=== PATIENT | female | born 1930 | race Two or more races ===

== ENCOUNTER 2017-09-08 10:15 | Emergency (ER) | payer OTHER ==
[2017-09-08 10:23] VITALS: BP 130/90; PULSE 74; TEMP 97.8; BMI 21.9
--- NOTE | 2017-09-08 13:05 | PDOC ---
History of Present Illness - General Chief Complaint: Injury Stated Complaint: INJURY Time Seen by Provider: 09/08/17 11:18 - History of Present Illness Initial Comments: 09/08/17 13:52 Pt. is an 87 y/o F PMH of hip fx, status post surical repair presents to the ED c/o R groin pain after falling on Friday. Pt states she missed a crack on the sidewalk and fell on her buttocks. No LOC, did not hit her head. She states that her pain is located in her right groin and vaginal region. States the pain feels like a burning pain. Denies back pain, saddle anesthesia, urinary/bowel incontinence, recent illness, fevers, chills Past History - Past Medical History Allergies/Adverse Reactions: Allergies Allergy/AdvReac Type Severity Reaction Status Date / Time Penicillins Allergy Verified 09/08/17 10:18 Sulfa (Sulfonamide Allergy Verified 09/08/17 10:18 Antibiotics) Home Medications: Ambulatory Orders NK [No Known Home Medication] 09/08/17 Asthma: Yes COPD: No GI Disorders: Yes (gerd) HTN: Yes Thyroid Disease: Yes - Suicide/Smoking/Psychosocial Hx Smoking History: Never smoked Have you smoked in the past 12 months: No Information on smoking cessation initiated: No Hx Alcohol Use: No Drug/Substance Use Hx: No Substance Use Type: None *Physical Exam - Vital Signs Last Vital Signs Temp Pulse Resp BP Pulse Ox 97.8 F 74 18 130/90 100 09/08/17 10:19 09/08/17 10:19 09/08/17 10:19 09/08/17 10:19 09/08/17 10:19 ED Treatment Course - RADIOLOGY Radiology Studies Ordered: Category Date Time Status LOWER EXTREMITY CT W/O CONTR [CT] Stat CT Scan 09/08/17 12:[address] WITHOUT CONTRAST [CT] Stat CT Scan 09/08/17 12:24 Ordered Medical Decision Making - Medical Decision Making 09/08/17 13:54 R pubic ramis fracture. Will page ortho solution professional.
[2017-09-08 13:06] LABS: URINE APPEARANCE CLEAR; URINE BILIRUBIN NEGATIVE (NEGATIVE); URINE BLOOD NEGATIVE (NEGATIVE); URINE COLOR YELLOW; URINE GLUCOSE (UA) NEGATIVE (NEGATIVE); URINE KETONE NEGATIVE (NEGATIVE); URINE LEUK ESTERASE NEGATIVE (NEGATIVE); URINE NITRITE NEGATIVE (NEGATIVE); URINE PROTEIN NEGATIVE (NEGATIVE)
[2017-09-08] MEDS ORDERED: traMADol HCL 50 MG TABLET PO ONE (14:54)
--- NOTE | 2017-09-08 14:57 | PDOC ---
*Physical Exam - Vital Signs Last Vital Signs Temp Pulse Resp BP Pulse Ox 97.8 F 74 18 130/90 100 09/08/17 10:19 09/08/17 10:19 09/08/17 10:19 09/08/17 10:19 09/08/17 10:19 ED Treatment Course - ADDITIONAL ORDERS Additional order review: Laboratory Results 09/08/17 12:50 Urine Color Yellow Urine Appearance Clear Urine pH 6.0 Ur Specific [facility] 1.017 Urine Protein Negative Urine Glucose (UA) Negative Urine Ketones Negative Urine Blood Negative Urine Nitrite Negative Urine Bilirubin Negative Urine Urobilinogen 2.0 H *DC/Admit/Observation/Transfer Diagnosis at time of Disposition: Pubic ramus fracture Qualifiers: Encounter type: initial encounter Fracture type: closed Laterality: right Qualified Code(s): S32.591A - Other specified fracture of right pubis, initial encounter for closed fracture - Discharge Dispostion Disposition: HOME Condition at time of disposition: Unchanged/Unknown Admit: No - Prescriptions Prescriptions: Tramadol HCl [Ultram] 50 mg PO QID #20 tablet MDD 4 - Referrals Referrals: Huseyin Peña MD [Staff Physician] - - Patient Instructions Printed Discharge Instructions: DI for Pelvic Fracture Additional Instructions: Mrs Price- You have a pelvic fracture called a pubic rami fracture. It will heal on its own over the next six weeks. You should see an orthopedic doctor for follow up - Dr. Peña is astronomy professor. The Tramadol (ULTRAM) is for pain. Get up and move slowly, use your walker. Best- Dr. Jonas Macdonald - Post Discharge Activity
[2017-09-08] MEDS ORDERED: traMADol HCL 50 MG TABLET ONE (14:58)
[2017-09-08 21:14] LABS: URINE LEUK ESTERASE NEGATIVE (NEGATIVE)
== END 2017-09-08 15:35 | disposition home or self-care (01) ==
LOC: JER 10:15 → JERFT 10:15 → JER 15:35
DX: S32.591A Other specified fracture of right pubis, initial encounter for closed fracture (principal); W18.39XA Other fall on same level, initial encounter; Y93.89 Activity, other specified; Y92.9 Unspecified place or not applicable; J45.909 Unspecified asthma, uncomplicated; I10 Essential (primary) hypertension; K21.9 Gastro-esophageal reflux disease without esophagitis; E07.9 Disorder of thyroid, unspecified
CPT/HCPCS: 72192-TC; 73523-TC; 73552-TC-RT; 73700-TC-RT; 81003; 87086; 99282-25